=== PATIENT | male | born 1955 | race Two or more races ===

== ENCOUNTER 2017-11-12 17:02 | Emergency (ER) | payer OTHER ==
[~2017-11-12] VITALS: Ht 167.6 cm; Wt 88.5 kg
[2017-11-12] MEDS ORDERED: ADVIL100 M1 (17:33)
[2017-11-12] MEDS ORDERED: OMEPRAZOLE10 MG (17:34)
[2017-11-12] MEDS ORDERED: CATAFLAN (17:34)
== END 2017-11-13 11:32 | disposition designated cancer center or children's hospital (05) ==
LOC: ER 17:02
DX: N10 Acute pyelonephritis (principal); R14.3 Flatulence; R10.84 Generalized abdominal pain; N39.0 Urinary tract infection, site not specified; B96.5 Pseudomonas (aeruginosa) (mallei) (pseudomallei) as the cause of diseases classified elsewhere

== ENCOUNTER 2018-03-14 09:53 | Emergency (ER) | payer OTHER ==
[~2018-03-14] VITALS: Ht 170.2 cm; Wt 88.5 kg
[~2018-03-14 09:53] MED LIST: ADVIL100 M1; CATAFLAN; OMEPRAZOLE10 MG
[2018-03-14] MEDS ORDERED: AMOXICILLIN500 MG (10:44)
== END 2018-03-14 11:41 | disposition home or self-care (01) ==
LOC: ER 09:53
DX: L60.0 Ingrowing nail (principal)

== ENCOUNTER 2018-12-12 08:00 | Emergency (ER) | payer OTHER ==
[~2018-12-12] VITALS: Ht 170.2 cm; Wt 86.2 kg
[~2018-12-12 08:00] MED LIST changes: +AMOXICILLIN500 MG
[2018-12-12] MEDS ORDERED: NEXIUM 24HR20 M1 (08:12)
[2018-12-12] MEDS ORDERED: ABATRACE CAPSU1 EACH (08:12)
[2018-12-12] MEDS ORDERED: ABATINEX680 MG (08:13)
== END 2018-12-12 10:44 | disposition home or self-care (01) ==
LOC: ER 08:00
DX: M94.0 Chondrocostal junction syndrome [Tietze] (principal); R10.12 Left upper quadrant pain

== ENCOUNTER 2019-08-01 00:54 | Emergency (ER) | payer OTHER ==
[~2019-08-01] VITALS: Ht 170.2 cm; Wt 89.8 kg
[~2019-08-01 00:54] MED LIST changes: +ABATINEX680 MG; +ABATRACE CAPSU1 EACH; +NEXIUM 24HR20 M1
[2019-08-01] MEDS ORDERED: PEPCID40 MG PO (03:19)
[2019-08-01] MEDS ORDERED: MOBIC15 MG PO (03:23)
== END 2019-08-01 03:38 | disposition home or self-care (01) ==
LOC: ER 00:54
DX: M94.0 Chondrocostal junction syndrome [Tietze] (principal); K44.9 Diaphragmatic hernia without obstruction or gangrene; R10.13 Epigastric pain; R07.89 Other chest pain

== ENCOUNTER 2020-06-27 06:42 | Emergency (ER) | payer OTHER ==
[~2020-06-27] VITALS: Ht 170.2 cm; Wt 88.5 kg
[~2020-06-27 06:42] MED LIST changes: +MOBIC15 MG PO; +PEPCID40 MG PO
== END 2020-06-27 10:20 | disposition home or self-care (01) ==
LOC: ER 06:42 → CPU-OBS 06:44 → ER 10:20
DX: M94.0 Chondrocostal junction syndrome [Tietze] (principal); R07.89 Other chest pain; R00.2 Palpitations

== ENCOUNTER 2020-06-29 09:29 | Emergency (ER) | payer OTHER ==
[~2020-06-29] VITALS: Ht 170.2 cm; Wt 88.5 kg
== END 2020-06-29 12:37 | disposition home or self-care (01) ==
LOC: ER 09:29
DX: B34.9 Viral infection, unspecified (principal); Z03.818 Encounter for observation for suspected exposure to other biological agents ruled out; R06.02 Shortness of breath; R07.89 Other chest pain

== ENCOUNTER 2020-10-13 06:11 | Emergency (ER) | payer OTHER ==
[~2020-10-13] VITALS: Ht 167.6 cm; Wt 87.5 kg
[2020-10-13] MEDS ORDERED: DORADOL (06:28)
[2020-10-13] MEDS ORDERED: CYCLOBENZAPRINE10 MG PO (10:26)
[2020-10-13] MEDS ORDERED: DICLOFENAC POTA50 MG PO (10:26)
== END 2020-10-13 10:46 | disposition home or self-care (01) ==
LOC: ER 06:11
DX: S33.5XXA Sprain of ligaments of lumbar spine, initial encounter (principal); M54.5 Low back pain; X50.0XXA Overexertion from strenuous movement or load, initial encounter; Y93.B2 Activity, push-ups, pull-ups, sit-ups; Y92.89 Other specified places as the place of occurrence of the external cause; Y99.8 Other external cause status

== ENCOUNTER → 2025-02-24 | Emergency (ER) | payer OTHER ==
[~2025-02-24] VITALS: Ht 170.2 cm; Wt 87.5 kg
[~2025-02-24] MED LIST changes: +0.9 % SODIUM CHLORIDE 1,000 ML IV STA; +CIPRO500 MG PO; +CYCLOBENZAPRINE10 MG PO; +DICLOFENAC POTA50 MG PO; +DORADOL; +FAMOTIDINE/PF 20 MG/2 ML VIAL IV STA; +FAMOTIDINE/PF 20 MG/2 ML VIAL ONE; +LEVSIN/SL0.125 MG SL; +METRONIDAZOLE500 MG PO; +MORPHINE SULFATE 4 MG/ML CARTRIDGE IV STA; +ONDANSETRON HCL 2 MG/ML VIAL IV STA; +ONDANSETRON HCL 2 MG/ML VIAL ONE; +PEPCID AC20 MG PO; +PROBIOTIC1 EAC2 PO
[2025-02-25 01:29] LABS: BASO % 0.3 % (0.1-1.2); EOS # 0.01 (0.04-0.54); EOS % 0.1 % (0.7-7.0); LYMPH # 0.83 (1.18-3.74); LYMPH % 6.9 % (19.3-53.1); MEAN PLATELET VOLUME 11.90 fl (9.4-12.4); MONO # 0.39 (0.24-0.82); MONO % 3.2 % (4.7-12.5); NEUT # 10.71 (1.56-6.13); NEUT % 88.6 % (34.0-71.1); RED CELL DISTRIBUTION WIDTH 13.1 % (11.6-14.4)
[2025-02-25 01:54] LABS: ERYTHROCYTE SEDIMENTATION RATE 9 mm/hr (0-20)
[2025-02-25 01:58] LABS: INR 0.99
[2025-02-25 02:16] LABS: ALT/SGPT 32.0 U/L (12-78); AST/SGOT 17.0 U/L (15-37); BILIRUBIN TOTAL 0.79 mg/dL (0.3-1.2); BUN CREA RATIO 16.0 (7.0-25.0); CREATININE SERUM 1.17 mg/dL (0.70-1.30); GFR 61.45; GLOBULINA 3.9 G/DL (2.4-3.5)
[2025-02-25 02:18] LABS: GLUCOSE FASTING 202.0 mg/dL (65-100); OSMOLALITY SERUM 287.0 MOSM/KG (275-295)
[2025-02-25 08:29] LABS: URINE APPEARANCE Clear; URINE BILIRRUBIN Negative (NEGATIVE); URINE BLOOD Negative; URINE COLOR Yellow; URINE GLUCOSE Negative (NEGATIVE); URINE KETONE Negative (NEGATIVE); URINE LEUKOCYTE Negative; URINE NITRATE Negative; URINE PROTEIN Negative (NEGATIVE); URINE UROBILINOGEN 1.0 E.U./dl
[2025-02-25 08:33] LABS: URINE EPITHELIAL CELLS 1.9 uL (0.0-38.8); URINE RBC 3.1 uL (0.0-20.8); URINE WBC 1.9 uL (0.0-23.2)
[2025-02-25 08:37] LABS: URINE BACTERIA 3.4 uL (0.0-1933); URINE CAST 0.00 uL (0.0-1.40)
== END | disposition home or self-care (01) ==
LOC: ER 23:09
PROVIDERS: Physician Assistant Medical
DX: K57.30 Diverticulosis of large intestine without perforation or abscess without bleeding (principal); K81.9 Cholecystitis, unspecified; Z87.09 Personal history of other diseases of the respiratory system
CPT/HCPCS: 36415; 74177; 76700; 96365; 96366; 99284; J2270; J2405; J3490; J7030; Q9965